=== PATIENT | female | born 1995 | race Two or more races ===

== ENCOUNTER → 2016-05-26 | Outpatient (CLI) | payer MEDICAID ==
[2016-05-26 14:44] LABS: LYMPH # 2.7 K/mm3 (0.7-4.5)
[2016-05-26 16:15] LABS: ABO BLOOD TYPE O; RH BLOOD TYPE POSITIVE
[2016-05-27 11:54] LABS: RAPID PLASMA REAGIN NON-REACTIVE (NON-REACTIVE)
[2016-05-27 15:19] LABS: HEPATITIS B SURFACE ANTIG NON-REACTIVE (NON-REACTIVE)
[2016-05-27 22:09] LABS: ANTI HIV NON-REACTIVE
== END ==
LOC: LAB 14:21
PROVIDERS: Nurse Practitioner Obstetrics & Gynecology
DX: Z34.00 Encounter for supervision of normal first pregnancy, unspecified trimester (principal)
CPT/HCPCS: G0432